=== PATIENT | male | born 1980 | race Caucasian/White ===

== ENCOUNTER 2017-07-03 23:53 | Emergency (ER) | payer SELFPAY ==
[~2017-07-03] VITALS: Ht 180.3 cm; Wt 95.3 kg
[2017-07-04 00:03] VITALS: BP_SYST 139
[2017-07-04] MEDS ORDERED: LIDOCAINE 1% 10 MG/ML, 20 ML MDV INJ ONE (00:30)
[2017-07-04] MEDS ORDERED: BACITRACIN 1 GM OINT TP ONE (01:28)
[2017-07-04 01:45] VITALS: BP_SYST 134
[2017-07-04] MEDS ORDERED: KETOROLAC TROMETHAMINE 60 MG/2 ML VIAL IM ONE (01:45)
== END 2017-07-04 01:45 | disposition home or self-care (01) ==
LOC: SED 23:53
DX: S01.01XA Laceration without foreign body of scalp, initial encounter (principal); S01.412A Laceration without foreign body of left cheek and temporomandibular area, initial encounter; F17.210 Nicotine dependence, cigarettes, uncomplicated; Y04.2XXA Assault by strike against or bumped into by another person, initial encounter; Y93.01 Activity, walking, marching and hiking; Y92.411 Interstate highway as the place of occurrence of the external cause; Y99.8 Other external cause status
CPT/HCPCS: 12002; 12011; 96372; 99284; J1885; J2001

== ENCOUNTER 2017-07-09 21:25 | Emergency (ER) | payer SELFPAY ==
[~2017-07-09] VITALS: Ht 180.3 cm; Wt 95.3 kg
[2017-07-09 21:42] VITALS: BP_SYST 140
[2017-07-10 00:24] VITALS: BP_SYST 140
== END 2017-07-10 00:24 | disposition home or self-care (01) ==
LOC: SED 21:25
DX: S01.412D Laceration without foreign body of left cheek and temporomandibular area, subsequent encounter (principal); Y04.0XXD Assault by unarmed brawl or fight, subsequent encounter
CPT/HCPCS: 99281

== ENCOUNTER 2017-07-17 17:07 | Emergency (ER) | payer SELFPAY ==
[~2017-07-17] VITALS: Ht 180.3 cm; Wt 95.3 kg
[2017-07-17 17:19] VITALS: BP_SYST 146
[2017-07-17 18:11] VITALS: BP_SYST 146
--- NOTE | 2017-07-17 18:12 | NUR ---
Paty Lee RECORDING CLERK at bedside examining patient
--- NOTE | 2017-07-17 18:12 | NUR ---
Pt brought by family , A&Ox4, ambulatory, pt presents to ER for staple removal from back of the head, skin pink and warm, cap refill <3, VSS, denies bleeding.
--- NOTE | 2017-07-17 18:12 | NUR ---
Note channingmario in EDM - 07/17/17 at 1815 by JACK Pt brought by Chris banegas, ambulatory, pt presents to ER for staple removal from back of the head, skin pink and warm, cap refill <3, VSS, denies bleeding.
--- NOTE | 2017-07-17 18:12 | NUR ---
Patient to ER bed H1 to gown for evaluation. Side rails up.
--- NOTE | 2017-07-17 18:16 | NUR ---
Pasquale removed by Paty Lee NP from posterior head, procedure well tolerated.
[2017-07-17] MEDS ORDERED: BACITRACIN 1 GM OINT TP ONE (18:30)
--- NOTE | 2017-07-17 18:36 | NUR ---
Patient given written and verbal discharge instructions and verbalizes understanding. ER MD discussed with patient the results and treatment provided. Patient in stable condition. ID arm band removed. Rx of Bacitracin given. Patient educated on pain management and to follow up with PMD. Pain Scale 0. Opportunity for questions provided and answered.
== END 2017-07-17 18:35 | disposition home or self-care (01) ==
LOC: SED 17:07
DX: S01.01XD Laceration without foreign body of scalp, subsequent encounter (principal); R03.0 Elevated blood-pressure reading, without diagnosis of hypertension; F17.200 Nicotine dependence, unspecified, uncomplicated; Z71.6 Tobacco abuse counseling; X58.XXXD Exposure to other specified factors, subsequent encounter
CPT/HCPCS: 99282

== ENCOUNTER 2022-05-19 11:44 | Inpatient (IN) | payer MEDICAID ==
[~2022-05-19] VITALS: Ht 175.3 cm; Wt 103.9 kg
[2022-05-19 11:50] VITALS: BP_SYST 147
--- NOTE | 2022-05-19 11:58 | NUR ---
Patient triaged and placed in waiting room. VSS and patient appears in no acute distress at this time. Accompanied by SELF, awaiting available bed, and MD notified of need for MSE.
--- NOTE | 2022-05-19 12:00 | NUR ---
PT CAME IN FROM HOME C/O RIGHT LOWER TOOTH PAIN X 2 DAYS WITH FACIAL SWELLING AND REDNESS. STATES PAIN HAS GOTTEN WORSE AND HE IS HAVING TROUBLE SLEEPING AND EATING BECAUSE OF IT. PT STATES HE HAD LEFT OVER AMOXICILLIN AT HOME THAT HE HAS TAKEN 2 DOSES OF. PT IS AMBULATORY, AAOX4, VSS
[2022-05-19] MEDS ORDERED: NACL 0.9% 1,000 ML IV ONE (14:45)
[2022-05-19] MEDS ORDERED: CLINDAMYCIN 600 mg/50mL D5W 50 ML IV ONE (14:45)
[2022-05-19] MEDS ORDERED: MORPHINE 4 MG INJ. 4 MG/ML VIAL IVP ONE ×2 (15:00→18:15)
--- NOTE | 2022-05-19 15:22 | NUR ---
IV FLUIDS STARTED, ANBXON BOARD, BLD CX TAKEN PRIOR TO START.
[2022-05-19 15:23] LABS: BASOPHILS % (AUTO) 0.3 % (0.0-2.0); EOSINOPHILS # (AUTO) 0.1 K/uL (0.0-0.4); EOSINOPHILS % (AUTO) 0.3 % (0.0-4.0); HEMATOCRIT 38.7 % (36-54); LYMPHOCYTES % (AUTO) 5.6 % (20.5-51.5); MEAN CORPUSCULAR VOLUME 74 fL (79.0-98.0); MONOCYTES # (AUTO) 1.4 K/uL (0.0-1.0); NEUTROPHILS # (AUTO) 15.1 K/uL (1.8-7.7); NEUTROPHILS % (AUTO) 85.8 % (40.0-70.0); PLATELET COUNT (AUTO) 308 K/uL (130-430); RED BLOOD CELL COUNT(AUTO) 5.22 MIL/uL (4.2-6.2); RED CELL DISTRIBUTION WIDTH 21.9 % (9.0-15.0); WHITE BLOOD COUNT (AUTO) 17.6 K/uL (4.8-10.8)
[2022-05-19 15:43] LABS: INR 1.1 (0.80-1.20); PROTHROMBIN TIME 11.4 SECS (9.5-12.5)
[2022-05-19 15:44] LABS: CALCIUM 9.4 mg/dL (8.4-11.0); CREATININE 0.88 mg/dL (0.55-1.30)
[2022-05-19 15:58] LABS: ALBUMIN 3.1 g/dL (3.4-4.8); TOTAL BILIRUBIN 1.3 mg/dL (0.0-1.0)
[2022-05-19 16:01] LABS: POTASSIUM 2.7 mmol/L (3.5-5.1)
--- NOTE | 2022-05-19 17:05 | NUR ---
MARILIA SWABBED AND SENT TO LAB
--- NOTE | 2022-05-19 18:19 | NUR ---
PT C/O RT CHEEK PAIN 04/05, MEDICATED ORDERED
[2022-05-19] MEDS ORDERED: KCL 20 mEq in 100 mL (PREMIX) 100 ML IV ONE (18:30)
[2022-05-19] MEDS ORDERED: KCL 20 mEq in D5W 1000 mL 1,000 ML IV ONE (18:30)
--- NOTE | 2022-05-19 18:31 | NUR ---
Spoke with pt re awaiting transfer. Pt states pain is 1/10. No signs of distress noted, pt is sitting on gurney, appears comfortable.
--- NOTE | 2022-05-19 18:35 | NUR ---
moved to bed 2
--- NOTE | 2022-05-19 19:20 | NUR ---
Received report from EDWARD Carr; assuming care of patient at this time.
--- NOTE | 2022-05-19 19:30 | NUR ---
Patient A/Ox4, resp even and unlabored, resting in bed with side rails raised, patient's significant other at bedside. Nad noted at this time.
--- NOTE | 2022-05-19 20:12 | NUR ---
# 20 gauge angiocath placed to LEFT HAND. Use of asceptic technique. Opsite placed over site. Blood return noted. Blood for lab drawn from site. Flushed with 10 cc of normal saline. No evidence of infiltration noted. Patient tolerated well.
[2022-05-19] MEDS ORDERED: KETOROLAC TROMETHAMINE 30 MG VIAL IVP ONE (20:15)
[2022-05-19] MEDS ORDERED: LR 500 ML IV ONE (20:30)
[2022-05-19] MEDS ORDERED: AMPICILLIN SODIUM/SULBACTAM NA 3 GM VIAL IM ONE (20:30)
[2022-05-19] MEDS ORDERED: HYDROcodone/ACETAMIN 10-325 MG TAB PO ONE (20:30)
[2022-05-19] MEDS ORDERED: POTASSIUM CHLORIDE 20 MEQ TAB.PRT.SR PO ONE (20:30)
[2022-05-19] MEDS ORDERED: ONDANSETRON HCL 4 MG/2 ML VIAL IVP PRN (21:00)
[2022-05-19] MEDS ORDERED: AMPICILLIN SODIUM/SULBACTAM NA 3 GM VIAL ONE (21:24)
--- NOTE | 2022-05-19 21:25 | NUR ---
Admit bed requested Patient will be admitted to care of Dr. Ovalle Admitted to Telemetry unit. Diagnosis Sepsis Inpatient (Yes or No) yes Observation (Yes or No) no Orientation concerns or request close to nursing station (Yes or No) no Covid Status negative On vent or bipap no Isolation requirements no Needs a sitter no From Home (Yes or if No enter name of facility) no Requires Dialysis (Yes or No) no Med Rec Completed (Yes of No) yes
[2022-05-19] MEDS: AMPICILLIN SODIUM/SULBACTAM NA 3 GM in NS 100 ML IV SCH (21:34)
[2022-05-19] MEDS: MORPHINE 4 MG INJ. 4 MG/ML VIAL IVP PRN (21:35)
[2022-05-19] MEDS ORDERED: NALOXONE HCL 0.4 MG/ML AMP (NARCAN) IVP PRN (21:45)
[2022-05-19] MEDS ORDERED: ACETAMINOPHEN 325 MG TABLET PO PRN (21:45)
[2022-05-20] MEDS: LR 1,000 ML IV SCH ×3 (00:06→11:24)
[2022-05-20] MEDS ORDERED: QUET50TA PO (01:41)
[2022-05-20] MEDS ORDERED: EFF37 PO (01:42)
[2022-05-20] MEDS: MORPHINE 4 MG INJ. 4 MG/ML VIAL IVP PRN ×5 (02:14→22:12)
[2022-05-20 02:27] VITALS: BP_SYST 131
[2022-05-20] MEDS ORDERED: AMPICILLIN SODIUM/SULBACTAM NA 3 GM VIAL ONE (04:31)
[2022-05-20] MEDS: AMPICILLIN SODIUM/SULBACTAM NA 3 GM in NS 100 ML IV SCH ×3 (04:51→17:48)
--- NOTE | 2022-05-20 04:51 | NUR ---
unasyn given late due to earlier dosage given late. also requested for housekeeper head but they came a bit later.
--- NOTE | 2022-05-20 05:01 | NUR ---
CONSULTATION PAGED/CALLED Reason for Consultation: SEPSIS Person Who was Notified:AGUSTIN Consulting Physician: PEBBLES Bottle Washer Specialty: Ordering Physician: LILLIAN
--- NOTE | 2022-05-20 07:30 | NUR ---
Patient transferred to floor stable condition. Vital signs stable accompanied by girlfriend. Endorsed issue about antibiotic. Potassium one time order 20 meq not given due to ER nurse giving a larger potassium medication earlier and waiting for that to finish
--- NOTE | 2022-05-20 08:00 | NUR ---
Admit notes Received pt from ER alert, ambulatory. afebrile. Has redness and swelling on his neck and its slightly draining. per patient, its drained a lot last night and he feels better. oriented to call light use. Enc to call for help as needed.
[2022-05-20 08:28] VITALS: BP_SYST 117
--- NOTE | 2022-05-20 08:32 | NUR ---
POTASSIUM Potassium premix was not given to ER, unable to get it in the phyxis. Re order as again as per pharmacy.
[2022-05-20] MEDS ORDERED: KCL 20 mEq in 100 mL (PREMIX) 100 ML IV ONE (08:45)
[2022-05-20] MEDS: HYDROcodone/ACETAMIN 5-325 MG TAB (NORCO/ VICODIN) PO PRN ×2 (11:24→19:02)
--- NOTE | 2022-05-20 11:30 | NUR ---
NOTES COMPLAIN OF MODERATE PAIN, MEDICATED ORDERED.
[2022-05-20 14:26] LABS: BASOPHILS # (AUTO) 0.1 K/uL (0.0-0.2); BASOPHILS % (AUTO) 0.5 % (0.0-2.0); EOSINOPHILS # (AUTO) 0.3 K/uL (0.0-0.4); EOSINOPHILS % (AUTO) 2.2 % (0.0-4.0); HEMATOCRIT 36.7 % (36-54); LYMPHOCYTES # (AUTO) 1.7 K/uL (1.0-5.5); LYMPHOCYTES % (AUTO) 14.9 % (20.5-51.5); MEAN CORPUSCULAR VOLUME 75 fL (79.0-98.0); MONOCYTES # (AUTO) 0.8 K/uL (0.0-1.0); MONOCYTES % (AUTO) 6.9 % (1.7-9.3); NEUTROPHILS # (AUTO) 8.8 K/uL (1.8-7.7); NEUTROPHILS % (AUTO) 75.5 % (40.0-70.0); PLATELET COUNT (AUTO) 315 K/uL (130-430); RED BLOOD CELL COUNT(AUTO) 4.92 MIL/uL (4.2-6.2); RED CELL DISTRIBUTION WIDTH 21.9 % (9.0-15.0); WHITE BLOOD COUNT (AUTO) 11.7 K/uL (4.8-10.8)
[2022-05-20 14:44] VITALS: BP_SYST 124
[2022-05-20 14:50] LABS: CALCIUM 8.7 mg/dL (8.4-11.0); CREATININE 0.9 mg/dL (0.55-1.30); POTASSIUM 3.3 mmol/L (3.5-5.1)
--- NOTE | 2022-05-20 16:00 | NUR ---
NOTES Resting in bed, family at bedside.
[2022-05-20] MEDS ORDERED: POTASSIUM CHLORIDE 20 MEQ TAB.PRT.SR PO ONE (17:00)
[2022-05-20 17:40] VITALS: BP_SYST 121
--- NOTE | 2022-05-20 20:00 | NUR ---
pT STATES HE IS UPSET BECAUSE HIS CALL LIGHT IS NOT WORKING AND HE IS IN GREAT NEED OF PAIN MEDICATION. wiLL CONTINUE TO MONITOR
--- NOTE | 2022-05-21 | NUR ---
pT'S GIRLFRIEND WAS ASKED TO GO DURING THE NIGHT PER CHARGE REQUEST. gIRLFRIEND NEVER LEFT. pT COMPLAINS OF PAIN OFTEN
[2022-05-21] MEDS: AMPICILLIN SODIUM/SULBACTAM NA 3 GM in NS 100 ML IV SCH ×5 (00:15→23:19)
[2022-05-21] MEDS: HYDROcodone/ACETAMIN 5-325 MG TAB (NORCO/ VICODIN) PO PRN (01:50)
[2022-05-21] MEDS: LR 1,000 ML IV SCH ×2 (03:45→13:45)
--- NOTE | 2022-05-21 04:00 | NUR ---
pT MEDICATED FOR PAIN. nO CHANGE IN CONDITION
[2022-05-21 04:48] VITALS: BP_SYST 111
--- NOTE | 2022-05-21 05:15 | NUR ---
PT HAS BEEN EDUCATED ABOUT OUR VISITING HOURS BY THE CHARGE NURSE. THE PT'S GIRLFRIEND SIMPLY STOPPED LAYING ACROSS THE BED RAILS AND BEGAN SITTING UPRIGHT. WILL CONTINUE TO MONITOR
[2022-05-21 08:00] VITALS: BP_SYST 137
--- NOTE | 2022-05-21 08:00 | NUR ---
Received patient in bed aao x 4, vital signs within normal limits, meds given as ordered, in no acute distress, patient able to make needs known. Call light placed to reach.
[2022-05-21 09:41] LABS: BASOPHILS # (AUTO) 0.1 K/uL (0.0-0.2); BASOPHILS % (AUTO) 0.8 % (0.0-2.0); EOSINOPHILS # (AUTO) 0.4 K/uL (0.0-0.4); EOSINOPHILS % (AUTO) 4.1 % (0.0-4.0); HEMATOCRIT 35.3 % (36-54); LYMPHOCYTES # (AUTO) 1.9 K/uL (1.0-5.5); LYMPHOCYTES % (AUTO) 21.9 % (20.5-51.5); MEAN CORPUSCULAR VOLUME 76 fL (79.0-98.0); MONOCYTES # (AUTO) 0.7 K/uL (0.0-1.0); MONOCYTES % (AUTO) 7.8 % (1.7-9.3); NEUTROPHILS # (AUTO) 5.6 K/uL (1.8-7.7); NEUTROPHILS % (AUTO) 65.4 % (40.0-70.0); PLATELET COUNT (AUTO) 333 K/uL (130-430); RED BLOOD CELL COUNT(AUTO) 4.64 MIL/uL (4.2-6.2); RED CELL DISTRIBUTION WIDTH 21.6 % (9.0-15.0); WHITE BLOOD COUNT (AUTO) 8.5 K/uL (4.8-10.8)
--- NOTE | 2022-05-21 12:34 | NUR ---
patient pulled IV out by accident,RN placed a new 22 g IV to right hand,patient tolerated well
[2022-05-21] MEDS: MORPHINE 4 MG INJ. 4 MG/ML VIAL IVP PRN ×3 (12:37→21:52)
[2022-05-21] MEDS: CLINDAMYCIN 300 MG in D5W 50 ML IV SCH ×3 (13:07→23:19)
[2022-05-21 16:05] VITALS: BP_SYST 111
--- NOTE | 2022-05-21 16:10 | NUR ---
Patient in bed watching TV with his girlfriend, in no acute distress, will continue to be available to help as needed
[2022-05-21 18:37] LABS: ALBUMIN 2.4 g/dL (3.4-4.8); CALCIUM 8.6 mg/dL (8.4-11.0); CREATININE 0.86 mg/dL (0.55-1.30); POTASSIUM 3.2 mmol/L (3.5-5.1); TOTAL BILIRUBIN 0.3 mg/dL (0.0-1.0)
[2022-05-21 20:00] VITALS: BP_SYST 144
--- NOTE | 2022-05-22 00:58 | NUR ---
CONSULTATION PAGED/CALLED Reason for Consultation: SUBMANDIBULAR ABSCESS Person Who was Notified: AGUSTIN Consulting Physician: PHILIPPE Paper Cone Maker Specialty: Ordering Physician: LILLIAN
[2022-05-22 05:31] VITALS: BP_SYST 120
[2022-05-22] MEDS: LR 1,000 ML IV SCH (06:28)
[2022-05-22] MEDS: CLINDAMYCIN 300 MG in D5W 50 ML IV SCH ×2 (06:38→11:40)
[2022-05-22] MEDS: AMPICILLIN SODIUM/SULBACTAM NA 3 GM in NS 100 ML IV SCH ×3 (06:39→17:33)
[2022-05-22 08:13] LABS: BASOPHILS % (AUTO) 0.3 % (0.0-2.0); EOSINOPHILS # (AUTO) 0.5 K/uL (0.0-0.4); EOSINOPHILS % (AUTO) 6.1 % (0.0-4.0); HEMATOCRIT 36.2 % (36-54); LYMPHOCYTES # (AUTO) 2.2 K/uL (1.0-5.5); MEAN CORPUSCULAR VOLUME 75 fL (79.0-98.0); MONOCYTES # (AUTO) 0.6 K/uL (0.0-1.0); MONOCYTES % (AUTO) 7.9 % (1.7-9.3); NEUTROPHILS # (AUTO) 4.5 K/uL (1.8-7.7); NEUTROPHILS % (AUTO) 57.7 % (40.0-70.0); PLATELET COUNT (AUTO) 326 K/uL (130-430); RED BLOOD CELL COUNT(AUTO) 4.81 MIL/uL (4.2-6.2); RED CELL DISTRIBUTION WIDTH 21.4 % (9.0-15.0); WHITE BLOOD COUNT (AUTO) 7.7 K/uL (4.8-10.8)
[2022-05-22 08:15] LABS: CALCIUM 8.3 mg/dL (8.4-11.0); CREATININE 0.8 mg/dL (0.55-1.30); POTASSIUM 4.2 mmol/L (3.5-5.1)
[2022-05-22] MEDS: MORPHINE 4 MG INJ. 4 MG/ML VIAL IVP PRN ×2 (08:28→17:32)
--- NOTE | 2022-05-22 08:30 | NUR ---
LEGAL BILLING ANALYST ACSW Naz responded to a generated Social Service referral for Suicide Risk. ACSW reviewed notes, no mention of SI. ACSW reviewed Admission Assessment and found the following; - Wishes to be - NO - Suicidal Thoughts- NO - REfer to Pct for Suicide Risk- YES ACSW reviewed with EDWARD Babin, who stated admission assessment is a mistake and there are no concerns for SI or HI at this time. ACSW will continue to be available as needed Addendum: 05/22/22 at 1336 by Naz MARTINEZ HUMBLE Childs notified Dietary of mistake on assessment.
[2022-05-22 09:14] VITALS: BP_SYST 130
--- NOTE | 2022-05-22 17:40 | NUR ---
rn notes patient to be discharged per MD. Pending dc order. All questions are answered.
[2022-05-22] MEDS ORDERED: CLIN-142 PO (17:53)
[2022-05-22] MEDS ORDERED: LACT1TAB14 PO (17:53)
--- NOTE | 2022-05-23 08:15 | NUR ---
Dispo code 01
== END 2022-05-22 18:15 | disposition home or self-care (01) | DRG 720 ==
LOC: SED 11:44 → STU 20:18 → SMU 05-20 19:32
PROVIDERS: ADMIT Internal Medicine; ATTEND Internal Medicine
DX: A41.9 Sepsis, unspecified organism (principal); E43 Unspecified severe protein-calorie malnutrition; K04.7 Periapical abscess without sinus; K12.2 Cellulitis and abscess of mouth; F10.10 Alcohol abuse, uncomplicated; F17.200 Nicotine dependence, unspecified, uncomplicated; Z20.822 Contact with and (suspected) exposure to COVID-19; Z68.33 Body mass index [BMI] 33.0-33.9, adult
CPT/HCPCS: 36415; 70491-TC; 76376; 80048; 80053; 83605; 83735; 85025; 85610-TC; 85730-TC; 87040; 87070-TC; 87075-TC; 96365; 96375; 96376; 99285; G0378; J0295; J1885; J2270; J2405; J3480; J3490; J7060; Q9967